=== PATIENT | female | born 1955 | race Two or more races ===

== ENCOUNTER 2025-02-03 10:08 | Outpatient (CLI) | payer OTHER | END 2025-02-03 10:12 | disposition home or self-care (01) | LOC: SONOGRAMA 10:08 | PROVIDERS: ATTEND Pathology Anatomic Pathology & Clinical Pathology | DX: D34 Benign neoplasm of thyroid gland (principal); E07.89 Other specified disorders of thyroid; E03.9 Hypothyroidism, unspecified ==